=== PATIENT | female | born 2000 | race Caucasian/White ===

== ENCOUNTER 2023-05-31 20:44 | Outpatient (REF) | payer OTHER, SELFPAY ==
[2023-06-03 13:11] LABS: Age Gdln ACOG Testing Note (.); IGP, rfx Aptima HPV ASCU Note (.)
== END 2023-05-31 20:45 | disposition home or self-care (01) ==
LOC: LAB 20:44
PROVIDERS: Visit Provider Physician Assistant
DX: Z12.4 Encounter for screening for malignant neoplasm of cervix (principal); Z11.51 Encounter for screening for human papillomavirus (HPV)
CPT/HCPCS: G0145

== ENCOUNTER 2024-08-09 21:31 | Outpatient (REF) | payer OTHER, SELFPAY ==
[2024-08-16 13:11] LABS: Age Gdln ACOG Testing Note (.); IGP, rfx Aptima HPV ASCU Note (.)
== END 2024-08-09 21:32 | disposition home or self-care (01) ==
LOC: LAB 21:31
PROVIDERS: Visit Provider Physician Assistant
DX: Z01.419 Encounter for gynecological examination (general) (routine) without abnormal findings (principal)
CPT/HCPCS: 88175